=== PATIENT | female | born 1985 | race African-American/Black ===

== ENCOUNTER 2019-04-24 16:51 | Inpatient (IN) | payer OTHER ==
[~2019-04-24] VITALS: Ht 157.5 cm; Wt 89.1 kg
--- NOTE | 2019-04-24 17:15 | NUR ---
CALLED TO FOR PT LOCKED IN BR. ARRIVED TO , UNLOCKED BR DOOR FOUND PT LYING IN FLOOR. A/OX3. STATES "I WAS URINATING THEN I JUST WENT OUT" PT STOOD AND AMB TO WITHOUT PBMS. ALANIZ INDEPENDENTLY. C/O RIGHT SHLDR PAIN. SKIN INTACT. NO SWELLING NOTED. NO DEFORMITY NOTED. NOTIFIED BESSIE, SUSIE AND DR LEONARDO AND HS. PT TO ER #8 VIA . AMB FROM TO BED. CHANGED INTO GOWN INDEPENDENTLY. SPEECH CLEAR. VSS
[2019-04-24 17:53] LABS: BASOPHILS 0.2 % (0-2); EOSINOPHILS 0.1 % (0-7); HEMATOCRIT 29.2 % (36.0-48.0); HEMOGLOBIN 8.2 g/dL (12-16); IMMATURE GRANULOCYTES 0.4 % (0-5); LYMPHOCYTES 17.6 % (15-50); MCH 18.7 pg (26.0-34.0); MCHC 28.1 g/dL (31.0-37.0); MCV 66.5 fL (80.0-100.0); MEAN PLATELET VOLUME 9.5 fL (7.4-10.4); MONOCYTES 7.3 % (2-11); NEUTROPHILS 74.4 % (40-80); PLATELET COUNT 425 10x3/uL (130-400); RBC 4.39 10x6/uL (4.00-5.40); RDW 21.4 % (11.5-14.5); WBC 8.5 10x3/uL (4.8-10.8)
[2019-04-24 17:54] LABS: CALC OSMOLALITY 271 mosm/kg (275-300); CALCIUM 9.7 mg/dL (8.5-10.1); CARBON DIOXIDE 21.4 mmol/L (21.0-32.0); CHLORIDE - SERUM 103 mmol/L (98-107); CREATININE - SERUM 0.6 mg/dL (0.6-1.3); GLUCOSE 101 mg/dL (74-106); POTASSIUM - SERUM 3.7 mmol/L (3.5-5.1); SODIUM 137 mmol/L (136-145); UREA NITROGEN 8 mg/dL (7-18); eGFR NON AFRICAN AMERICAN > 90 mL/min (90-120)
[2019-04-24 18:00] LABS: ALBUMIN 3.8 g/dL (3.4-5.0); ALKALINE PHOSPHATASE 38 U/L (46-116); ALT (SGPT) 15 U/L (10-68); BILIRUBIN - TOTAL 0.38 mg/dL (0.2-1.3); PROTEIN - SERUM 8.1 g/dL (6.4-8.2)
--- NOTE | 2019-04-24 19:00 | NUR ---
PT FAMILY MEMBER CAME OUT OF ROOM STATING PT WAS HAVING EPISODE. UPON ENTERING ROOM PATIENT HR WAS 105 AND DROPPED TO UPPER 50S WITHIN 45 SECONDS. PT STARING TO RIGHT SIDE AND NOT RESPONDING TO VERBAL COMMANDS. PT DROOLING. EPISODE LASTED APPROXIMATELY 1-2 MINUTES. PT BEGAN MOANING. ZAN IBARRA CALLED TO BEDSIDE. PT MONITORED VIA DIRECTOR OUTCOMES, BP AND PULSE OX AT THIS TIME. COLOR REMAINED WNL FOR RACE. PT ABLE TO SPEAK NAME AFTER EPISODE.
--- NOTE | 2019-04-24 19:23 | NUR ---
PT ALERT AND ORIENTED X3 AT THIS TIME. NO DISTRESS NOTED. COLOR WNL. RESPIRATIONS ARE EVEN AND UNLABORED. PT IS ANSWERING QUESTIONS APPROPRIATELY.
[2019-04-24 19:25] VITALS: BP 130/72
--- NOTE | 2019-04-24 20:03 | NUR ---
PT HAVING ANOTHER EPISODE AT THIS TIME. PT STARING TO RIGHT. VSS. OX 100% ON RA.
[2019-04-24 20:04] VITALS: BP 170/90
--- NOTE | 2019-04-24 20:12 | NUR ---
PT RESTING AT THIS TIME. PT IS CONFUSED AT THIS TIME. BUT IS ANSWERING QUESTIONS. VSS. COLOR WNL. PT 100% ON RA. HR 62 BP 170/90 RR 28.
[2019-04-24 20:23] LABS: APPEARANCE CLEAR (CLEAR); BILIRUBIN NEGATIVE (NEGATIVE); COLOR YELLOW (YELLOW); GLUCOSE NEGATIVE (NEGATIVE); KETONE SMALL mg/dL (NEGATIVE); NITRITE NEGATIVE (NEGATIVE); PROTEIN NEGATIVE (NEGATIVE); SPECIFIC GRAVITY 1.005 (1.005-1.020); UROBILINOGEN NORMAL (NORMAL)
[2019-04-24 20:25] LABS: HCG URINE NEGATIVE (NEGATIVE)
[2019-04-24 20:29] LABS: UDS - AMPHET NEGATIVE QUAL (NEGATIVE); UDS - BARB NEGATIVE QUAL (NEGATIVE); UDS - BENZO NEGATIVE QUAL (NEGATIVE); UDS - COCAINE NEGATIVE QUAL (NEGATIVE); UDS - OPIATE NEGATIVE QUAL (NEGATIVE); UDS - PCP NEGATIVE QUAL (NEGATIVE); UDS - THC NEGATIVE QUAL (NEGATIVE)
--- NOTE | 2019-04-24 21:07 | NUR ---
CALLED REPORT TO REN AT THIS TIME
--- NOTE | 2019-04-24 21:09 | NUR ---
UNABLE TO TRANSPORT PATIENT AT THIS TIME. WAITING FOR EVS.
[2019-04-24 21:14] VITALS: BP 93/48
--- NOTE | 2019-04-24 21:14 | NUR ---
ADVISED EDP IBARRA OF BP 93/48. ORDERS GIVEN TO INCREASE NORMAL SALINE TO BOLUS RATE FOR REMAINDER OF LITER. PT HAS APPROXIMATELY 800 ML REMAINING.
--- NOTE | 2019-04-24 21:41 | NUR ---
PT AMBULATED TO RESTROOM WITH ASSISTANCE WITHOUT DIFFICULTY.
[2019-04-24 22:32] VITALS: BP 109/54; Ht 157.5 cm; Wt 89.1 kg
[2019-04-25] VITALS: BP 89/28
--- NOTE | 2019-04-25 03:43 | NUR ---
ASSESSD AT THE TIME OF ARRIVAL FROM THE ER. PT IS SLEEPY AND ORIENTED, ABLE TO VERBALIZE NEEDS. SHE REQUESTED WATER BUT OTHER THAN THAT SHE HAS BEEN SLEEPING. NO SIGNS OF SEIZURES NOTED. THE BED IS LOW, RAILS UP X'S 2 WITH THE CALL LIGHT AT HAND. FREQUENT CHECKS MADE FOR ANY CHANGES.
[2019-04-25 04:00] VITALS: BP 84/37
[2019-04-25 06:32] LABS: % SATURATION 4 % (15-55); IRON 19 ug/dl (35-150); TOTAL IRON BIND CAPACITY 417 ug/dl (260-445); UNSAT IRON BIND CAPACITY 398 ug/dl (150-375)
[2019-04-25 07:01] LABS: THYROID STIMULATING HORMONE 0.2 uIU/mL (0.36-3.74)
[2019-04-25 07:56] VITALS: BP 101/46
[2019-04-25 12:18] VITALS: BP 100/49
--- NOTE | 2019-04-25 12:32 | NUR ---
PT LYING IN BED. RESTING QUIETLY. PT ASKED WHEN THE NEXT TIME SHE CAN HAVE IBPROFEN I STATED AT 1500. PT VERBALIZED UNDERSTANDING. PT HAS NOT SHOWN ANY S/S OF A SEIZURE. WILL CONTINUE TO MONITOR. BED LOW. CL IN REACH.
[2019-04-25] MEDS ORDERED: KEPPRA500 MG PO (15:27)
--- NOTE | 2019-04-25 17:01 | NUR ---
PT DISCHARGED WENT INTO PT'S ROOM TO DISCHARGE PT. DISCHARGE TEACHING DONE AND THOROUGHLY EXPLAINED TO PT, PT'S SON, SISTER AND SISTER'S SPOUSE THAT IS AT BEDSIDE THAT PT'S MRI AND CT SCAN OF HER BRAIN WERE BOTH NORMAL AND SHE NEEDS TO BE SEEN BY A NEUROLOGIST AND THE HOSPITAL DOES NOT HAVE ONE THAT IS WHY SHE NEEDS TO FIND A PCP. GAVE HER A HANDOUT FOR HEALTH[facility] CONNECTIONS FOR PCP AND STATED TO HER HOUSECALLS WILL CONTACT HER FOR FOLLOW UP APPOINTMENT AND WILL REFER HER TO A NEUROLOGIST. I ALSO STATED FOR PT TO TAKE OVER THE COUNTER IBUPROFEN FOR PAIN. PT STATES SHE WANTS A SCRIPT FOR 800MG IBUPROFEN. LEFT PT'S ROOM AND WENT BACK IN AND PT IS MOANING PT'S SISTER STARTS YELLING AT ME "YOU CAN'T SEND HER HOME LIKE THIS! SHE IS IN PAIN AND YOU HAVEN'T DONE ANYTHING FOR HER! SHE NEEDS TO BE SEEN!!" ONCE AGAIN I EXPLAINED THAT SHE HAS BEEN SEEN AND SHE IS DISCHARGED BECAUSE THERE IS NOTHING MORE WE CAN DO FOR HER HERE. SHE NEEDS TO BE SEEN BY A NEUROLOGIST AND WE DO NOT HAVE ONE. PT'S SISTER STATES "WE ARE NOT LEAVING!" WALKED OUT OF ROOM AND CALLED AND SPOKE WITH DR. MCCLURE AND EXPLAINED TO SITUATION TO HIM HE STATES "PT IS LEAVING SHE IS FINE. SHE CAN BE SEEN FOR A FOLLOW UP APPOINTMENT AND SHE CAN GET IBUPROFEN OVER THE COUNTER FOR $3. CALL SECURITY IF YOU HAVE TO BUT SHE IS LEAVING." I VERBALIZED UNDERSTANDING. CALLED CASTING FINISHER IDA AND KENO ATTENDANT TO COME SPEAK WITH PT AND HER FAMILY.
--- NOTE | 2019-04-25 17:32 | NUR ---
IDA CERAMIC ARTIST, TABATHA DELIVERER OUTSIDE, AND THIS NURSE ALL WENT INTO PT'S ROOM. IDA AND TABATHA BOTH STATED TO PT AND HER FAMILY EVERYTHING I DID AND PT AND HER FAMILY DECIDED THEY WOULD LEAVE AND FIND A NEUROLOGIST TO SEE PT. TABATHA DELIVERER OUTSIDE GAVE PT A PRINT OUT OF NEUROLOGISTS IN [place] AND [facility]. PT'S SISTER CALLED [facility] AND THEY STATED TO HER THE HAVE AN MILL WORKER NEUROLOGIST. PT'S SISTER STATES THEY WILL TAKE HER TO [facility]. WE ALL VERBALIZED UNDERSTANDING.
--- NOTE | 2019-04-25 17:32 | NUR ---
LEFT WRIST 20G IV DC'D WITH CATH INTACT. DISCHARGE PAPERS SIGNED AND DISCHARGE INSTRUCTIONS GIVEN TO PT. PT WANTS TO FINSIH EATING DINNER TRAY BEFORE LEAVING.
--- NOTE | 2019-04-25 17:39 | MORECARE ---
CASE MANAGEMENT DISCHARGE SUMMARY PATIENT: JUDE BLACK UNIT: [id number] ADM DATE: 04/24/19 AGE: 33 : [birth year] SEX: F ROOM/BED: D.1207 AUTHOR: PERCY FREIRE PHYSICIAN: REFERRING PHYSICIAN: BOSTON MCCLURE MD DATE OF SERVICE: 04/25/19 Discharge Plan Patient Name: JUDE BLACK [facility] [facility] 1985 Planned Disposition: Anticipated Discharge Date: Discharge Date: Expected LOS: Initial Reviewer: [email or web address] Initial Review Date: 04/25/2019 Generated: 04/25/19 6:39 pm DCP- Discharge Planning Updated by [email or web address]: Sarai Dudley on 04/25/19 4:[address] Patient Name: JUDE BLACK Admission Status: ER Accout number: [id number] Admission Date: 04-24-2019 : 1985 Admission Diagnosis: Attending: BOSTON MCCLURE Current LOS: 1 Anticipated DC Date: Planned Disposition: Primary Insurance: MEDICAID [place] Discharge Planning Comments: CM MET WITH PATIENT ABOUT DC PLANNING/NEEDS. I GAVE HER A LIST OF NEUROLOGIST FOR A FOLLOW UP APPOINTMENT. SHE IS DISCHARGING HOME WITH HER SISTER. SHE IS VERY CONCERNED AND SCARED, I REASSURED HER AND HER FAMILY AND EMPHASIZED FOLLOW UP WITH NEURO. CM, CAMPUS POLICE OFFICER AND NURSE WAS AT BEDSIDE TO MEET WITH HER AND HER FAMILY. PATIENT TO DC TO HOME. CM WILL FOLLOW AND ASSES NEEDED. Pipe Organ Installer: Sarai Dudley Patient Name: JUDE BLACK Page [phone] at 1739 All edits/amendments must be made on the electronic document DICTATION DATE: 04/25/191738 CVT TECH: JUDY 04/25/191738 RPT#: [id number] DC DATE: STATUS: ADM IN [facility] [address] [place] [address] END OF REPORT
--- NOTE | 2019-04-25 17:43 | NUR ---
PT TAKEN OUT VIA WC AND LEFT WITH FAMILY VIA PERSONAL CAR WITH HER SON DRIVING.
--- NOTE | 2019-04-26 16:06 | MORECARE ---
CASE MANAGEMENT DISCHARGE SUMMARY PATIENT: JUDE BLACK UNIT: [id number] ADM DATE: 04/24/19 AGE: 33 : 86 SEX: F ROOM/BED: D.1207 AUTHOR: PERCY FREIRE PHYSICIAN: REFERRING PHYSICIAN: BOSTON MCCLURE MD DATE OF SERVICE: 04/26/19 Discharge Plan Patient Name: JUDE BLACK Facility: [facility]:[place] : 1985 Planned Disposition: Anticipated Discharge Date: Discharge Date: 04/25/2019 Expected LOS: Initial Reviewer: [email or web address] Initial Review Date: 04/25/2019 Generated: 04/26/19 5:06 pm DCP- Discharge Planning Updated by [email or web address]: Sarai Dudley on 04/25/19 4:[address] Patient Name: JUDE BLACK Admission Status: ER Accout number: [id number] Admission Date: 04-24-2019 : 1985 Admission Diagnosis: Attending: BOSTON MCCLURE Current LOS: 1 Anticipated DC Date: Planned Disposition: Primary Insurance: MEDICAID [place] Discharge Planning Comments: CM MET WITH PATIENT ABOUT DC PLANNING/NEEDS. I GAVE HER A LIST OF NEUROLOGIST FOR A FOLLOW UP APPOINTMENT. SHE IS DISCHARGING HOME WITH HER SISTER. SHE IS VERY CONCERNED AND SCARED, I REASSURED HER AND HER FAMILY AND EMPHASIZED FOLLOW UP WITH NEURO. CM, KILN LOADER AND NURSE WAS AT BEDSIDE TO MEET WITH HER AND HER FAMILY. PATIENT TO DC TO HOME. CM WILL FOLLOW AND ASSES NEEDED. Bellstand Attendant: Sarai Dudley Last DP export: 04/25/19 4:39 p Patient Name: JUDE BLACK Page [phone] at 1606 All edits/amendments must be made on the electronic document DICTATION DATE: 04/26/191605 GARAGE HELPER: JUDY 04/26/19 160 RPT#: [id number] DC DATE:04/25/19 STATUS: DIS IN [facility] [address] [place] [address] END OF REPORT
== END 2019-04-25 17:56 | disposition home or self-care (01) | DRG 101 ==
LOC: D.ER 16:51 → EDBD 16:51 → D.M3 20:34
PROVIDERS: Emergency Medicine; Family Medicine; ADMIT Internal Medicine Nephrology; ATTEND Internal Medicine Nephrology
DX: R56.9 Unspecified convulsions (principal); D50.9 Iron deficiency anemia, unspecified; R00.1 Bradycardia, unspecified; W19.XXXA Unspecified fall, initial encounter; R55 Syncope and collapse